=== PATIENT | female | born 1995 | race Two or more races ===

== ENCOUNTER 2024-12-24 21:31 | Emergency (ER) | payer OTHER ==
[~2024-12-24] VITALS: Ht 162.6 cm; Wt 73.5 kg
[2024-12-24] MEDS ORDERED: PRENATAL + DHA1 EAC1 PO (21:39)
[2024-12-24] MEDS ORDERED: FAMOTIDINE/PF 20 MG in 0.9 % SODIUM CHLORIDE 8 ML IV PUSH STA (22:03)
[2024-12-24] MEDS ORDERED: ONDANSETRON HCL 2 MG/ML VIAL IV ONE (22:15)
[2024-12-24] MEDS ORDERED: 0.9 % SODIUM CHLORIDE 1,000 ML IV SCH (22:15)
[2024-12-24] MEDS ORDERED: ONDANSETRON HCL 2 MG/ML VIAL ONE (22:45)
[2024-12-24] MEDS ORDERED: FAMOTIDINE/PF 20 MG/2 ML VIAL ONE (22:45)
[2024-12-24 23:29] LABS: HEMATOCRIT 41.2 % (36.0-45.00); HEMOGLOBIN 14.4 g/dL (12.0-15.00); MEAN CELL VOLUME 90.2 fL (80.00-100.00); MEAN CORPUSCULAR HEMOGLOBIN 31.4 pg (27.00-32.0); MEAN CORPUSCULAR HGB CONC 34.8 g/dl (32.0-36.0); PLATELET COUNT 210 K/uL (150-450); RED BLOOD COUNT 4.57 M/uL (4.00-6.00)
[2024-12-24 23:58] LABS: ALBUMIN 3.1 gm/dL (3.4-5.0); BILIRUBIN TOTAL 0.48 mg/dL (0.3-1.2); CALCIUM 9.4 mg/dL (8.5-10.1); CREATININE SERUM 0.57 mg/dL (0.55-1.02); GFR 123.71; GLOBULINA 3.6 G/DL (2.4-3.5); POTASSIUM 4.04 mEq/L (3.5-5.1); TOTAL PROTEIN 6.7 gm/dL (6.4-8.2)
[2024-12-25] MEDS ORDERED: ONDANSETRON ODT8 MG PO (00:16)
[2024-12-25] MEDS ORDERED: PEPCID AC20 MG PO (00:16)
== END 2024-12-25 01:14 | disposition home or self-care (01) ==
LOC: ER 21:34
PROVIDERS: General Practice
DX: O98.512 Other viral diseases complicating pregnancy, second trimester (principal); B34.9 Viral infection, unspecified; Z3A.20 20 weeks gestation of pregnancy

== ENCOUNTER 2025-05-02 14:15 | Inpatient (IN) | payer OTHER ==
[~2025-05-02] VITALS: Ht 160 cm; Wt 77.6 kg
[~2025-05-02 14:15] MED LIST: ONDANSETRON ODT8 MG PO; PEPCID AC20 MG PO; PRENATAL + DHA1 EAC1 PO
[2025-05-07 09:21] VITALS: BP 116/66
[2025-05-07] MEDS ORDERED: RINGERS SOLUTION,LACTATED 1,000 ML IV SCH (11:30)
[2025-05-07] MEDS ORDERED: MISOPROSTOL 25 MCG TABLET VAG ONE (11:30)
[2025-05-07 12:29] LABS: BASO % 0.3 % (0.1-1.2); EOS # 0.09 (0.04-0.54); EOS % 0.9 % (0.7-7.0); HEMATOCRIT 35.8 % (34.1-44.9); HEMOGLOBIN 11.9 g/dL (11.2-15.7); LYMPH # 2.16 (1.18-3.74); LYMPH % 21.2 % (19.3-53.1); MEAN CORPUSCULAR HEMOGLOBIN 28.7 pg (25.6-32.2); MONO # 1.08 (0.24-0.82); MONO % 10.6 % (4.7-12.5); NEUT # 6.69 (1.56-6.13); NEUT % 65.8 % (34.0-71.1); PLATELET COUNT 159 K/uL (163-369); RED BLOOD COUNT 4.15 M/uL (3.93-5.22); RED CELL DISTRIBUTION WIDTH 13.8 % (11.6-14.4)
[2025-05-07 12:45] LABS: INR 1.05; PARTIAL THROMBOPLASTIN TIME 26.9 SECONDS (22.0-34.0); PROTHROMBIN TIME 11.4 SECONDS (9.0-11.5)
[2025-05-07 12:52] LABS: ALBUMIN 2.5 gm/dL (3.4-5.0); BILIRUBIN TOTAL 0.46 mg/dL (0.3-1.2); CALCIUM 8.8 mg/dL (8.5-10.1); CREATININE SERUM 0.56 mg/dL (0.55-1.02); GFR 125.45; GLOBULINA 3.5 G/DL (2.4-3.5); POTASSIUM 4.11 mEq/L (3.5-5.1)
[2025-05-07 15:02] VITALS: BP 107/62
[2025-05-07] MEDS ORDERED: MORPHINE SULFATE 4 MG IV SCH (18:15)
[2025-05-07 18:32] VITALS: BP 96/69
[2025-05-07] MEDS ORDERED: MORPHINE SULFATE 4 MG/ML CARTRIDGE IV SCH (19:00)
[2025-05-07 21:35] VITALS: BP 122/72
[2025-05-07 23:30] VITALS: BP 116/68
[2025-05-07] MEDS ORDERED: ERYTHROMYCIN BASE OPHT 1GM EACH TUBE OP ONE (23:30)
[2025-05-07] MEDS ORDERED: OXYTOCIN 20 UNITS/1000ML RL PIGGYBAG IV ONE (23:30)
[2025-05-07] MEDS ORDERED: LIDOCAINE HCL 1% 10ML VIAL ONE (23:31)
[2025-05-07] MEDS ORDERED: CHLORHEXIDINE GLUCONATE 120 ML BOTTLE TOP ONE (23:31)
[2025-05-08] MEDS ORDERED: OXYTOCIN 20 UNITS/500ML RL PIGGYBAG IV ONE (00:59)
[2025-05-08] MEDS ORDERED: OXYTOCIN 500 ML IV SCH (01:15)
[2025-05-08] MEDS ORDERED: METHYLERGONOVINE MALEATE 0.2 MG/ML AMPUL ONE ×2 (02:29→08:29)
[2025-05-08] MEDS ORDERED: CARBOPROST TROMETHAMINE 250 MCG/ML AMPUL IM ONE ×2 (02:34→04:00)
[2025-05-08] MEDS ORDERED: MISOPROSTOL 100 MCG TABLET ONE (02:51)
[2025-05-08] MEDS ORDERED: OXYTOCIN 20 UNITS/1000ML RL PIGGYBAG IV ONE (03:37)
[2025-05-08] MEDS ORDERED: CHLORHEXIDINE GLUCONATE 120 ML BOTTLE TP SCH (04:00)
[2025-05-08] MEDS ORDERED: OXYTOCIN 1,000 ML IV SCH (04:00)
[2025-05-08] MEDS ORDERED: IBUprofen 400 MG TABLET PO PRN (04:00)
[2025-05-08] MEDS ORDERED: MISOPROSTOL 100 MCG TABLET RECTAL ONE (04:00)
[2025-05-08] MEDS ORDERED: METHYLERGONOVINE MALEATE 0.2 MG/ML AMPUL IM SCH (04:00)
[2025-05-08 05:20] LABS: BASO % 0.2 % (0.1-1.2); HEMATOCRIT 35.7 % (34.1-44.9); HEMOGLOBIN 11.7 g/dL (11.2-15.7); LYMPH # 1.08 (1.18-3.74); LYMPH % 4.3 % (19.3-53.1); MEAN CORPUSCULAR HEMOGLOBIN 28.5 pg (25.6-32.2); MONO # 1.32 (0.24-0.82); MONO % 5.3 % (4.7-12.5); NEUT # 22.43 (1.56-6.13); NEUT % 89.2 % (34.0-71.1); PLATELET COUNT 192 K/uL (163-369); RED BLOOD COUNT 4.11 M/uL (3.93-5.22); RED CELL DISTRIBUTION WIDTH 13.8 % (11.6-14.4)
[2025-05-08 05:30] LABS: INR 1.05; PARTIAL THROMBOPLASTIN TIME 25.6 SECONDS (22.0-34.0); PROTHROMBIN TIME 11.4 SECONDS (9.0-11.5)
[2025-05-08 06:46] VITALS: BP 106/68
[2025-05-08 08:00] VITALS: BP 106/67
[2025-05-08 17:00] VITALS: BP 101/67
[2025-05-08] MEDS ORDERED: SENNA/DOCUSATE SODIUM 1 TAB TABLET PO SCH (21:00)
[2025-05-09] VITALS: BP 90/55
[2025-05-09 08:00] VITALS: BP 93/51
[2025-05-09 12:49] VITALS: BP 93/63
[2025-05-09 14:31] LABS: INR 1.04; PARTIAL THROMBOPLASTIN TIME 25.7 SECONDS (22.0-34.0); PROTHROMBIN TIME 11.3 SECONDS (9.0-11.5)
[2025-05-09 15:19] LABS: BASO % 0.5 % (0.1-1.2); EOS # 0.15 (0.04-0.54); LYMPH # 3.11 (1.18-3.74); LYMPH % 20.4 % (19.3-53.1); MEAN CORPUSCULAR HEMOGLOBIN 29.2 pg (25.6-32.2); MONO # 1.19 (0.24-0.82); MONO % 7.8 % (4.7-12.5); NEUT # 10.58 (1.56-6.13); NEUT % 69.1 % (34.0-71.1); PLATELET COUNT 186 K/uL (163-369); RED BLOOD COUNT 2.88 M/uL (3.93-5.22); RED CELL DISTRIBUTION WIDTH 13.9 % (11.6-14.4)
[2025-05-09 15:29] LABS: HEMOGLOBIN 8.4 g/dL (11.2-15.7)
[2025-05-09 15:52] VITALS: BP 99/64
[2025-05-10 01:57] VITALS: BP 107/71
[2025-05-10] MEDS ORDERED: POVIDONE-IODINE 118 ML BOTT TOP ONE (09:50)
[2025-05-10] MEDS ORDERED: OXYTOCIN 10 UNITS/ML VIAL ONE (10:46)
[2025-05-10 13:07] VITALS: BP 100/66; O2SAT 100
[2025-05-10 13:11] LABS: BASO % 0.3 % (0.1-1.2); EOS # 0.11 (0.04-0.54); EOS % 0.9 % (0.7-7.0); LYMPH # 2.14 (1.18-3.74); LYMPH % 18.5 % (19.3-53.1); MEAN CORPUSCULAR HEMOGLOBIN 28.2 pg (25.6-32.2); MONO # 0.97 (0.24-0.82); MONO % 8.4 % (4.7-12.5); NEUT # 8.17 (1.56-6.13); NEUT % 70.6 % (34.0-71.1); PLATELET COUNT 169 K/uL (163-369); RED BLOOD COUNT 2.77 M/uL (3.93-5.22); RED CELL DISTRIBUTION WIDTH 14.2 % (11.6-14.4)
[2025-05-10 13:14] LABS: HEMOGLOBIN 7.8 g/dL (11.2-15.7)
[2025-05-10 16:08] VITALS: BP 108/71
== END 2025-05-10 17:53 | disposition home or self-care (01) | DRG 806 ==
LOC: LDR 05-07 11:24 → OB/GYN 05-07 11:24 → LDR 05-08 07:12 → OB/GYN 05-08 08:30
PROVIDERS: Obstetrics & Gynecology; Obstetrics & Gynecology Gynecology; ADMIT Obstetrics & Gynecology Maternal & Fetal Medicine; ATTEND Obstetrics & Gynecology Maternal & Fetal Medicine
PROC: 3E0P7VZ Introduction of Hormone into Female Reproductive, Via Natural or Artificial Opening (ICD-10-PCS; 2025-05-07)
PROC: 4A1HXCZ Monitoring of Products of Conception, Cardiac Rate, External Approach (ICD-10-PCS; 2025-05-07)
PROC: 3E033VJ Introduction of Other Hormone into Peripheral Vein, Percutaneous Approach (ICD-10-PCS; 2025-05-08)
PROC: BU4CZZZ Ultrasonography of Uterus and Ovaries (ICD-10-PCS; 2025-05-09)
PROC: 10E0XZZ Delivery of Products of Conception, External Approach (ICD-10-PCS; 2025-05-10)
PROC: 0HQ9XZZ Repair Perineum Skin, External Approach (ICD-10-PCS; 2025-05-10)
PROC: 10D17Z9 Manual Extraction of Products of Conception, Retained, Via Natural or Artificial Opening (ICD-10-PCS; principal; 2025-05-10 13:15)
DX: O73.0 Retained placenta without hemorrhage (principal); O72.1 Other immediate postpartum hemorrhage; Z37.0 Single live birth; O70.0 First degree perineal laceration during delivery; O69.81X0 Labor and delivery complicated by cord around neck, without compression, not applicable or unspecified; Z3A.39 39 weeks gestation of pregnancy